=== PATIENT | male | born 1990 | race Caucasian/White ===

== ENCOUNTER 2016-09-08 04:34 | Emergency (ER) | payer OTHER ==
[~2016-09-08 04:34] MED LIST: ASPIRIN EC81 M1 PO; BACTRIM DS TABL1 TA1 PO; CUBICIN IV; DICLOFENAC PO; ELIMITE60 G1 TP; FLEXERIL10 MG PO; IBUPROFEN800 MG PO; NO MEDICATIONS; NORCO 10-325 TA1 TAB PO; NORCO PO; PERCOCET 7.5-31 EACH PO; VOLTAREN75 MG PO
== END 2016-09-08 05:00 | disposition home or self-care (01) ==
LOC: CED 04:34
DX: K04.01 Reversible pulpitis (principal)
CPT/HCPCS: 99282; 99283

== ENCOUNTER 2016-10-22 23:59 | Emergency (ER) | payer OTHER | END 2016-10-23 01:40 | disposition left against medical advice (07) | LOC: CED 23:59 | DX: Z53.21 Procedure and treatment not carried out due to patient leaving prior to being seen by health care provider (principal) ==